=== PATIENT | female | born 1985 | race African-American/Black ===

== ENCOUNTER 2017-06-27 12:20 | Observation (INO) | payer SELFPAY ==
[~2017-06-27] VITALS: Ht 149.9 cm; Wt 59.9 kg
[2017-06-27] MEDS ORDERED: ACETAMINOPHEN 500MG TABLET PO NR (13:00)
== END 2017-06-27 13:15 | disposition home or self-care (01) ==
LOC: L&D 12:20
PROVIDERS: ADMIT Specialist; ATTEND Specialist
DX: O26.899 Other specified pregnancy related conditions, unspecified trimester (principal); M54.5 Low back pain; Z3A.00 Weeks of gestation of pregnancy not specified
CPT/HCPCS: 99281; G0378

== ENCOUNTER 2017-08-07 21:21 | Inpatient (IN) | payer SELFPAY ==
[~2017-08-07] VITALS: Ht 149.9 cm; Wt 62.1 kg
[2017-08-07] MEDS ORDERED: IRON-1 PO (21:34)
[2017-08-07] MEDS ORDERED: PNV1TABL76 PO (21:34)
[2017-08-07] MEDS ORDERED: LACTATED RINGERS 1,000 ML IV SCH (23:15)
[2017-08-07] MEDS: TERBUTALINE SULFATE 1MG/ML VIAL SUBCUT PRN (23:16)
[2017-08-08] MEDS: TERBUTALINE SULFATE 1MG/ML VIAL SUBCUT PRN (00:06)
[2017-08-08] MEDS ORDERED: DEXT 5%/LR + PITOCIN 20UNITS/L 1,000 ML IV SCH (01:17)
[2017-08-08] MEDS ORDERED: LACTATED RINGERS 1,000 ML IV SCH (01:17)
[2017-08-08] MEDS ORDERED: NALOXONE HCL 0.4 MG/ML 1ML VIAL IM PRN (01:30)
[2017-08-08] MEDS ORDERED: CARBOPROST TROMETHAMINE 250 MCG/ML AMPUL IM PRN (01:30)
[2017-08-08] MEDS ORDERED: METHYLERGONOVINE MALEATE 0.2 MG/ML IM PRN (01:30)
[2017-08-08 02:01] LABS: BASOPHILS % 0.2 % (0.0-2.0); EOSINOPHILS % 1.1 % (0.0-5.0); HEMATOCRIT. 27.7 % (36.0-48.0); HEMOGLOBIN. 8.8 g/dL (12.0-16.0); LYMPHOCYTES % 24.4 % (20.0-50.0); MEAN CORPUSCULAR HEMOGLOBIN 28.1 pg (28.0-32.0); MEAN CORPUSCULAR VOLUME 88.5 fL (81.0-99.0); MEAN PLATELET VOLUME 6.7 fl (7.4-10.4); MONOCYTES % 10.3 % (2.0-8.0); PLATELET 380 x1000/uL (130-400); RED BLOOD CELL COUNT 3.13 mill/uL (4.2-5.4); RED CELL DISTRIBUTION WIDTH 24.8 % (11.6-14.6)
[2017-08-08 02:06] LABS: CLARITY URINE CLEAR (CLEAR); COLOR URINE YELLOW (YELLOW); KETONES URINE TRACE (NEGATIVE); LEUKOCYTE ESTERASE URINE 1+ (NEGATIVE); NITRITE URINE NEGATIVE (NEGATIVE); OCCULT BLOOD URINE NEGATIVE (NEGATIVE); PH URINE 6.5 (4.5-8.0); PROTEIN URINE NEGATIVE (NEGATIVE); SPECIFIC GRAVITY URINE 1.017 (1.005-1.030); UROBILINOGEN URINE 0.2 E.U./dL (0.2-1.0)
[2017-08-08 02:08] LABS: PARTIAL THROMBOPLASTIN TIME 27.5 sec (23.4-31.0); PROTHROMBIN TIME 10.8 sec (9.4-11.6)
[2017-08-08 02:48] LABS: *AMPHETAMINES SCREEN URINE NEGATIVE (NEGATIVE); *BARBITURATES SCREEN URINE NEGATIVE (NEGATIVE); *BENZODIAZEPINES SCREEN URINE NEGATIVE (NEGATIVE); *COCAINE SCREEN URINE NEGATIVE (NEGATIVE); METHADONE URINE SCREEN NEGATIVE (NEGATIVE); OPIATES URINE SCREEN NEGATIVE (NEGATIVE); PHENCYCLIDINE URINE SCREEN NEGATIVE (NEGATIVE)
[2017-08-08 02:49] LABS: CANNABINOID URINE SCREEN PRESUMTIVE POSITIVE (NEGATIVE)
[2017-08-08] MEDS ORDERED: MORPHINE SULFATE/PF 1MG/ML 10ML AMP ONE (03:28)
[2017-08-08] MEDS ORDERED: CEFAZOLIN SODIUM 1000MG/VIAL ONE (03:48)
[2017-08-08] MEDS ORDERED: OXYTOCIN 10 UNITS/ML 1ML ONE ×2 (03:48→04:36)
[2017-08-08] MEDS ORDERED: RHO(D) IMMUNE GLOBULIN 300 MCG/SYR IM PRN (04:45)
[2017-08-08] MEDS ORDERED: BISACODYL 10MG SUPP PR PRN (04:45)
[2017-08-08] MEDS ORDERED: TETANUS, DIPHTHERIA, PERTUSSIS VAC/PF 0.5ML (>7YR OLD) IM ONE (04:45)
[2017-08-08] MEDS ORDERED: LANOLIN OINT 0.25 GM TUBE TOP PRN (04:45)
[2017-08-08] MEDS ORDERED: DIPHENHYDRAMINE 25MG CAPSULE PO PRN (04:45)
[2017-08-08] MEDS ORDERED: ONDANSETRON HCL 4MG/2ML VIAL IV PRN (04:45)
[2017-08-08 04:55] LABS: HEPATITIS B SURFACE ANTIGEN NEGATIVE; RUBELLA IGG 75.3 IU/mL (4.99-10)
[2017-08-08] MEDS ORDERED: BUTORPHANOL TARTRATE 2 MG/ML VIAL IM PRN (07:30)
[2017-08-08] MEDS: DIPHENHYDRAMINE 50MG/ML VIAL IV PRN (07:33)
[2017-08-08 09:00] VITALS: BP 134/84
[2017-08-08 09:30] VITALS: BP 128/84
[2017-08-08 10:40] LABS: BASOPHILS % 0.1 % (0.0-2.0); EOSINOPHILS % 0.7 % (0.0-5.0); HEMATOCRIT. 27.8 % (36.0-48.0); HEMOGLOBIN. 9.1 g/dL (12.0-16.0); MEAN CORPUSCULAR HEMOGLOBIN 28.3 pg (28.0-32.0); MEAN CORPUSCULAR VOLUME 86.7 fL (81.0-99.0); MEAN PLATELET VOLUME 6.2 fl (7.4-10.4); MONOCYTES % 9.4 % (2.0-8.0); NEUTROPHILS % 73.8 % (40.0-76.0); PLATELET 367 x1000/uL (130-400); RED BLOOD CELL COUNT 3.21 mill/uL (4.2-5.4); RED CELL DISTRIBUTION WIDTH 25.1 % (11.6-14.6)
[2017-08-08] MEDS: DEXT 5%/LACTATED RINGERS 1,000 ML IV SCH ×2 (11:52→12:32)
[2017-08-08] MEDS: MAGNESIUM/ALUMINUM HYDROXIDE/SIMETHICONE 30ML UDC PO SCH ×3 (13:00→21:00)
[2017-08-08] MEDS: SIMETHICONE 80MG TABLET CHEW PO SCH ×3 (13:00→21:00)
[2017-08-08 14:10] LABS: PLATELET ESTIMATE NORMAL
[2017-08-08 16:00] VITALS: BP 123/73
[2017-08-08 19:30] VITALS: BP 132/87
[2017-08-08] MEDS: DOCUSATE SODIUM 100MG CAPSULE PO SCH (21:00)
[2017-08-08 23:30] VITALS: BP 122/85
[2017-08-09 04:58] VITALS: BP 133/78
[2017-08-09] MEDS: DIPHENHYDRAMINE 50MG/ML VIAL IV PRN (04:59)
[2017-08-09] MEDS: HYDROCODONE/ACETAMINOPHEN 5/325MG TABLET PO PRN ×2 (07:26→12:49)
[2017-08-09] MEDS: IBUPROFEN 400MG TABLET PO PRN ×2 (07:26→21:13)
[2017-08-09 08:00] VITALS: BP 127/86
[2017-08-09] MEDS: MAGNESIUM/ALUMINUM HYDROXIDE/SIMETHICONE 30ML UDC PO SCH ×4 (09:00→21:13)
[2017-08-09] MEDS: SIMETHICONE 80MG TABLET CHEW PO SCH ×4 (09:00→21:13)
[2017-08-09 12:00] VITALS: BP 126/76
[2017-08-09] MEDS: FERROUS SULFATE 325MG TABLET PO SCH ×2 (13:55→17:08)
[2017-08-09] MEDS: ACETAMINOPHEN 500MG TABLET PO PRN (15:53)
[2017-08-09 16:00] VITALS: BP 134/80
[2017-08-09 20:00] VITALS: BP 148/95
[2017-08-09] MEDS: DOCUSATE SODIUM 100MG CAPSULE PO SCH (21:13)
[2017-08-10] MEDS: HYDROCODONE/ACETAMINOPHEN 5/325MG TABLET PO PRN ×4 (02:57→22:16)
[2017-08-10] MEDS: ACETAMINOPHEN 500MG TABLET PO PRN (06:09)
[2017-08-10 06:31] VITALS: BP 133/110
[2017-08-10 07:50] VITALS: BP 148/95
[2017-08-10 08:22] VITALS: BP 147/95
[2017-08-10] MEDS: MAGNESIUM/ALUMINUM HYDROXIDE/SIMETHICONE 30ML UDC PO SCH ×4 (08:26→21:00)
[2017-08-10] MEDS: FERROUS SULFATE 325MG TABLET PO SCH ×3 (08:26→17:00)
[2017-08-10] MEDS: SIMETHICONE 80MG TABLET CHEW PO SCH ×4 (08:39→21:00)
[2017-08-10] MEDS: IBUPROFEN 400MG TABLET PO PRN (10:38)
[2017-08-10 16:00] VITALS: BP 137/82
[2017-08-10 19:45] VITALS: BP 139/94
[2017-08-10] MEDS: DOCUSATE SODIUM 100MG CAPSULE PO SCH (21:00)
[2017-08-11 06:40] VITALS: BP 143/97
[2017-08-11 06:42] VITALS: BP 139/102
[2017-08-11] MEDS ORDERED: IBUPROFEN 800MG TABLET PO NR (08:25)
[2017-08-11 08:30] VITALS: BP 136/88
[2017-08-11] MEDS ORDERED: CITRIC ACID/SODIUM CITRATE SOLN 15ML UDC PO NR (08:30)
[2017-08-11 08:32] VITALS: BP 139/102
[2017-08-11] MEDS: SIMETHICONE 80MG TABLET CHEW PO SCH (08:35)
[2017-08-11] MEDS: FERROUS SULFATE 325MG TABLET PO SCH (08:35)
[2017-08-11] MEDS: MAGNESIUM/ALUMINUM HYDROXIDE/SIMETHICONE 30ML UDC PO SCH (08:35)
== END 2017-08-11 12:20 | disposition home or self-care (01) | DRG 540 ==
LOC: OBSVTOIN 21:21 → L&D 21:21 → 7EST PP/OB 08-08 09:15
PROVIDERS: ADMIT Specialist; ATTEND Specialist
PROC: 10D00Z1 Extraction of Products of Conception, Low, Open Approach (ICD-10-PCS; principal; 2017-08-08 04:45)
DX: O34.211 Maternal care for low transverse scar from previous cesarean delivery (principal); O99.324 Drug use complicating childbirth; O76 Abnormality in fetal heart rate and rhythm complicating labor and delivery; O99.344 Other mental disorders complicating childbirth; O99.52 Diseases of the respiratory system complicating childbirth; F43.10 Post-traumatic stress disorder, unspecified; D57.3 Sickle-cell trait; F12.10 Cannabis abuse, uncomplicated; F32.9 Major depressive disorder, single episode, unspecified; F20.9 Schizophrenia, unspecified; F40.240 Claustrophobia; J45.909 Unspecified asthma, uncomplicated; Z3A.39 39 weeks gestation of pregnancy; Z37.0 Single live birth
CPT/HCPCS: 36415; 80305; 80349; 81001; 85025; 85610; 85730; 86592; 86703; 86762; 86850; 86900; 86920; 87340; 88307; G0378; J0595; J0690; J1200; J2274; J3105; J7120; J7121; A4315

== ENCOUNTER 2018-02-05 06:20 | Emergency (ER) | payer MEDICAID ==
[~2018-02-05] VITALS: Ht 149.9 cm; Wt 85.0 kg
[2018-02-05 06:29] VITALS: BP 126/66
[2018-02-05 07:45] LABS: CLARITY URINE TURBID (CLEAR); COLOR URINE YELLOW (YELLOW); KETONES URINE NEGATIVE (NEGATIVE); LEUKOCYTE ESTERASE URINE 2+ (NEGATIVE); NITRITE URINE NEGATIVE (NEGATIVE); OCCULT BLOOD URINE NEGATIVE (NEGATIVE); PROTEIN URINE TRACE (NEGATIVE); SPECIFIC GRAVITY URINE 1.029 (1.005-1.030)
== END 2018-02-05 11:03 | disposition left against medical advice (07) ==
LOC: ER 07:06
DX: R10.9 Unspecified abdominal pain (principal); Z53.21 Procedure and treatment not carried out due to patient leaving prior to being seen by health care provider
CPT/HCPCS: 81003; 87086

== ENCOUNTER 2018-02-11 10:07 | Emergency (ER) | payer MEDICAID ==
[~2018-02-11] VITALS: Ht 149.9 cm; Wt 54.0 kg
[2018-02-11 13:00] VITALS: BP 128/70
== END 2018-02-11 13:19 | disposition home or self-care (01) ==
LOC: ER 10:07
DX: B86 Scabies (principal); L85.3 Xerosis cutis; J45.909 Unspecified asthma, uncomplicated; F12.10 Cannabis abuse, uncomplicated; Z88.6 Allergy status to analgesic agent
CPT/HCPCS: 99283; Z7610